=== PATIENT | female | born 1955 | race Caucasian/White ===

== ENCOUNTER 2023-10-17 09:46 | Outpatient (CLI) | payer MEDICARE, BC | END 2023-10-17 09:47 | disposition home or self-care (01) | LOC: CSHMRI 09:46 | PROVIDERS: ATTEND Neurological Surgery | DX: Q07.00 Arnold-Chiari syndrome without spina bifida or hydrocephalus (principal); M47.812 Spondylosis without myelopathy or radiculopathy, cervical region; G93.5 Compression of brain | CPT/HCPCS: 72052; 72141 ==